=== PATIENT | female | born 1945 | race Caucasian/White ===

== ENCOUNTER → 2016-09-12 | Outpatient (CLI) | payer MEDICARE, OTHER ==
[~2016-09-12] MED LIST: ARIXTRA2.5 MG/0.1 PO; ASPIRIN81 M1 PO; CALAN PO; CORGARD PO; FLEXERIL10 MG PO; KETOPROFEN PO; LORTAB 7.5-5001 TAB PO; MOBIC15 MG PO; NORCO 7.5-3251 EACH PO; PREDNISONE PO; THORAZINE PO; TYLENOL ARTHRITIS PO; VICODIN; VICODIN PO
--- NOTE | ~2016-09-12 | MY11 ---
[facility] A Service of [facility] RADIOLOGY TEXT RESULTS PATIENT: GAUDENCIO BILL LOCATION: [facility] : 45 UNIT #: [id number] AGE: [address]: Yang Dang MD SEX: F ORDER DR: [id number] [facility] [address] [place], [place] [address] [id number] O MR#: [id number] Acc #: [id number] NAME: GAUDENCIO BILL : 1945 SEX: F STUDY DATE/TIME: 09/12/2016 10:24 UNIT: [facility] ROOM: STUDY DESCRIPTION: MY Mammogram Screening Dig Seamus Attending Physician: Yang Dang M.D. Referring Physician: Yang Dang M.D. Ordering Physician: Yang Dang M.D. Primary Care Physician: Yang Dang M.D. MEDICAL IMAGING REPORT This report is preliminary unless electronic signature is present EXAM Bilateral digital screening mammogram CAD Date: 09/12/2016 HISTORY No personal or family history of breast cancer or current complaints. COMPARISON Bilateral screening mammogram 02/08/2015, 10/21/2012. Bilateral diagnostic mammogram 09/01/2010 FINDINGS CC and MLO views were obtained of each breast utilizing digital technique and reviewed with an FDA-approved CAD device. Breast parenchyma is predominately fatty replaced. Numerous round skin markers were placed over each breast denoting skin lesions. No new or developing nodule, architectural distortion or clustered microcalcification is seen. Benign vascular calcifications are present bilaterally. Benign appearing intramammary lymph node is seen in the posterior superior left breast over the anterior pectoral muscle margin, unchanged. IMPRESSION BIRADS category 2. Benign findings. Routine bilateral screening mammogram is recommended in year. Patients over the age of 40 are entered into a reminder system with target due date for the next mammogram. A result letter will also be sent to the patient. BIRADS: 2 Benign finding. [facility] A Service [facility] RADIOLOGY TEXT RESULTS PATIENT: GAUDENCIO BILL LOCATION: [facility] : 45 UNIT #: [id number] AGE: [address]: Yang Dang MD SEX: F ORDER DR: Dictated by... Olga Cloud M.D. THIS IS AN ELECTRONICALLY VERIFIED REPORT Olga Cloud M.D. at 09/13/2016 7:24 AM ANN/luisa TD: 09/12/2016 12:21 JOB #: [id number] MEDICAL IMAGING REPORT Page 1 of 1 COPY
== END | disposition home or self-care (01) ==
LOC: CWCC 10:07
DX: Z12.31 Encounter for screening mammogram for malignant neoplasm of breast (principal)
CPT/HCPCS: G0202